=== PATIENT | female | born 1980 ===

== ENCOUNTER → 2018-11-03 | Outpatient (REF) ==
--- NOTE | 2018-11-03 17:01 | REP ---
AP, LATERAL CERVICAL SPINE, THREE VIEWS: HISTORY: Degenerative disc disease. The cervical spine is visualized from C1 to the C6-7 level in the lateral radiograph. There is no acute fracture or subluxation. The intervertebral discs are normal in height. IMPRESSION:There is no acute fracture or subluxation. Electronically Signed by Sylvain Huntley MD 11/03/2018 05:05 P
== END ==
LOC: M SMT 14:22
PROVIDERS: ATTEND Internal Medicine
DX: M54.2 Cervicalgia (principal)